=== PATIENT | male | born 1985 | race Caucasian/White ===

== ENCOUNTER 2022-03-04 14:28 | Emergency (ER) | payer BC ==
[2022-03-04 14:35] VITALS: RESP 16; TEMP 98.4
--- NOTE | 2022-03-04 15:11 | ED ---
Extremity Problem HPI - General Chief complaint: Extremity Problem,Nontraumatic Stated complaint: Left Foot Pain and Swelling Time Seen by Provider: 03/04/22 14:59 Source: patient, RN notes reviewed Mode of arrival: ambulatory Limitations: no limitations - History of Present Illness Initial comments: This is a 36-year-old male who presents to the emergency department for left foot pain, redness, swelling. Patient states that he noted pain to the left foot 2 days ago, and yesterday it became red and swollen. Denies any known injuries or scrapes/wounds to the foot. He has never had anything like this in the past. Denies any intravenous drug use. He is able to ambulate, however he has to limp due to the pain. The pain is not traveling up the leg. Denies any fevers, chills, sore throat, cough, dyspnea, chest pain, palpitations, abdominal pain, nausea, vomiting, diarrhea, back pain, or headaches. MD Complaint: extremity pain, extremity swelling Onset/Timin -: days(s) Location: right History of Same: No - Related Data Previous Rx's Medication Instructions Recorded Cephalexin [Keflex] 1,000 mg PO Q12HR 7 Days #28 cap 03/04/22 Indomethacin [Indocin] 50 mg PO TID 7 Days #21 capsule 03/04/22 Allergies Allergy/AdvReac Type Severity Reaction Status Date / Time No Known Allergies Allergy Verified 03/04/22 15:04 Review of Systems ROS Statement: Those systems with pertinent positive or pertinent negative responses have been documented in the HPI. ROS Other: All systems not noted in ROS Statement are negative. Past Medical History Past Medical History: No Reported History History of Any Multi-Drug Resistant Organisms: None Reported Additional Past Surgical History / Comment(s): knee surgery Past Psychological History: No Psychological Hx Reported Smoking Status: Current some day smoker, Vaper Past Alcohol Use History: Occasional Past Drug Use History: Marijuana General Exam Limitations: no limitations General appearance: alert, in no apparent distress Head exam: Present: atraumatic, normocephalic, normal inspection Respiratory exam: Present: normal lung sounds bilaterally. Absent: respiratory distress, wheezes, rales, rhonchi, stridor Cardiovascular Exam: Present: regular rate, normal rhythm, normal heart sounds. Absent: systolic murmur, diastolic murmur, rubs, gallop, clicks Extremities exam: Present: other (Erythema, tenderness, and increased heat to the dorsal aspect of the right foot. Pain with movement of all 5 toes. 2+ dorsalis pedis and tibialis posterior pulses bilaterally. Capillary refill <1 second bilaterally. ) Neurological exam: Present: alert, oriented X3, CN II-XII intact Psychiatric exam: Present: normal affect, normal mood Course Vital Signs 03/04/22 03/04/22 14:30 18:28 Temperature 98.4 F Pulse Rate 88 61 Respiratory 16 16 Rate Blood Pressure 160/99 165/109 O2 Sat by Pulse 96 96 Oximetry Medical Decision Making - Medical Decision Making This is a 36-year-old male who presents to the emergency department with erythema and tenderness to the left foot. There is no obvious puncture wound or abscess formation to suggest an infection. Lab work reveals no leukocytosis consistent with an infection and x-ray reveals no acute bony abnormalities. Uric acid was elevated as well as the CRP. Patient also notes a very poor diet with the consumption of a significant amount of sugary drinks and sweets as well as foods containing high fructose corn syrup, all of which can trigger gout. Symptoms are more likely to be related to gout than an infectious process given the laboratory findings and the patient's history. While this cannot be definitively diagnosed without joint fluid analysis, will proceed with treating the patient for gout. Patient was given a dose of indomethacin in the emergency department and a prescription for this was sent to the pharmacy. Advised to take this 3 times daily until symptoms resolve, up to 7 days. I sent a prescription for Keflex to the pharmacy as well, advised that if the symptoms do not improve or worsen with the indomethacin, he should begin taking the Keflex for possible infectious process. Wells criteria for a DVT is 0. Discussed the importance of becoming established with a primary care provider for further evaluation and management of symptoms as well as ongoing healthcare. Return precautions reviewed in depth, the patient is instructed to return to the emergency department with any new, worsening, or concerning symptoms. Patient verbalized understanding. This case was discussed in detail with the attending ED physician. Presentation, findings, and treatment plan discussed in detail as well. - Lab Data Result diagrams: 03/04/22 15:10 03/04/22 16:41 Lab Results 03/04/22 03/04/22 03/04/22 Range/Units 15:10 15:10 16:41 WBC 10.3 (3.8-10.6) k/uL RBC 4.85 (4.30-5.90) m/uL Hgb 15.0 (13.0-17.5) gm/dL Hct 43.4 (39.0-53.0) % MCV 89.3 (80.0-100.0) fL MCH 30.9 (25.0-35.0) pg MCHC 34.6 (31.0-37.0) g/dL RDW 12.8 (11.5-15.5) % Plt Count 259 (150-450) k/uL MPV 7.3 Neutrophils % 69 % Lymphocytes % 19 % Monocytes % 7 % Eosinophils % 3 % Basophils % 2 % Neutrophils # 7.1 (1.3-7.7) k/uL Lymphocytes # 2.0 (1.0-4.8) k/uL Monocytes # 0.7 (0-1.0) k/uL Eosinophils # 0.3 (0-0.7) k/uL Basophils # 0.2 (0-0.2) k/uL ESR 8 (0-15) mm/hr Sodium 138 (137-145) mmol/L Potassium 5.6 H 4.3 (3.5-5.1) mmol/L Chloride 104 (98-107) mmol/L Carbon Dioxide 25 (22-30) mmol/L Anion Gap 9 mmol/L BUN 12 (9-20) mg/dL Creatinine 0.93 (0.66-1.25) mg/dL Est GFR (CKD-EPI)AfAm >90 (>60 ml/min/1.73 sqM) Est GFR (CKD-EPI)NonAf >90 (>60 ml/min/1.73 sqM) Glucose 120 H (74-99) mg/dL Uric Acid 8.8 H (3.5-8.5) mg/dL Calcium 9.0 (8.4-10.2) mg/dL Total Bilirubin 1.0 (0.2-1.3) mg/dL AST 46 (17-59) U/L ALT 50 H (4-49) U/L Alkaline Phosphatase 59 (38-126) U/L C-Reactive Protein 2.2 H (<1.0) mg/dL Total Protein 7.7 (6.3-8.2) g/dL Albumin 4.5 (3.5-5.0) g/dL - Radiology Data Radiology results: report reviewed, image reviewed Disposition Clinical Impression: Gout Disposition: HOME SELF-CARE Instructions (If sedation given, give patient instructions): Low Purine Diet (ED), Gout (ED) Additional Instructions: Return to the emergency department with any new, worsening, or concerning symptoms. Take the Indomethacin three times daily until symptoms resolve, do not take longer than 7 days. If symptoms do not improve with the indomethacin, start taking the antibiotic in the event you have developed an infection. Make sure that you become established with a primary care provider to reevaluate symptoms. Review the dietary recommendations listed on your discharge forms. Prescriptions: Indomethacin [Indocin] 50 mg PO TID 7 Days #21 capsule Cephalexin [Keflex] 1,000 mg PO Q12HR 7 Days #28 cap Is patient prescribed a controlled substance at d/c from ED?: No Referrals: None,Stated [Primary Care Provider] - 1-2 days
[2022-03-04 15:17] LABS: Basophils # (A) 0.2 k/uL (0-0.2); Basophils % (A) 2 %; Eosinophils # (A) 0.3 k/uL (0-0.7); Eosinophils % (A) 3 %; HCT 43.4 % (39.0-53.0); Lymphocytes % (A) 19 %; MCH 30.9 pg (25.0-35.0); MCHC 34.6 g/dL (31.0-37.0); MCV 89.3 fL (80.0-100.0); Mean Platelet Volume 7.3; Monocytes # (A) 0.7 k/uL (0-1.0); Monocytes % (A) 7 %; Neutrophils # (A) 7.1 k/uL (1.3-7.7); Neutrophils % (A) 69 %; Platelet Count 259 k/uL (150-450); RBC 4.85 m/uL (4.30-5.90); RDW 12.8 % (11.5-15.5); WBC 10.3 k/uL (3.8-10.6)
[2022-03-04 15:29] LABS: ALT 50 U/L (4-49); AST 46 U/L (17-59); African American GFR (CKD) >90 (>60 ml/min/1.73 sqM); Albumin 4.5 g/dL (3.5-5.0); Alkaline Phosphatase 59 U/L (38-126); Anion Gap 9 mmol/L; Blood Urea Nitrogen 12 mg/dL (9-20); C Reactive Protein 2.2 mg/dL (<1.0); Carbon Dioxide 25 mmol/L (22-30); Chloride 104 mmol/L (98-107); Glucose 120 mg/dL (74-99); Non-African American GFR(CKD) >90 (>60 ml/min/1.73 sqM); Sodium 138 mmol/L (137-145); Total Protein 7.7 g/dL (6.3-8.2); Uric Acid 8.8 mg/dL (3.5-8.5)
[2022-03-04 15:31] LABS: Potassium 5.6 mmol/L (3.5-5.1)
--- NOTE | 2022-03-04 15:47 | XR ---
EXAMINATION TYPE: XR foot complete LT DATE OF EXAM: 03/04/2022 3:29 PM INDICATION: Patient age:Male; 36 years old; Reason for study: Foot pain, redness, and swelling. COMPARISON: None TECHNIQUE: The left foot was examined in the AP, oblique, and lateral projections. FINDINGS: No evidence of any acute osseous pathology. There is soft tissue swelling throughout the foot. Joints are preserved. No radiopaque foreign body. IMPRESSION: No evidence of acute fracture. No radiopaque foreign body Mild soft tissue swelling correlate for cellulitis.
[2022-03-04] MEDS ORDERED: INDOMETHACIN 25 MG CAP PO STA (15:54)
[2022-03-04] MEDS ORDERED: ONDANSETRON 4 MG ODT STARTER PACK 2 TAB BTL PO STA (16:39)
[2022-03-04] MEDS ORDERED: ACET/COD 300 MG/30 MG STARTER PACK 6 TAB BTL PO STA (16:39)
[2022-03-04 17:25] LABS: Erythrocyte Sedimentation Rate 8 mm/hr (0-15)
[2022-03-04] MEDS ORDERED: IBUPROFEN 600 MG STARTER PACK 4 TAB BTL PO STA (17:26)
[2022-03-04 18:30] VITALS: BP 165/109; PULSE 61
== END 2022-03-04 18:34 | disposition home or self-care (01) ==
LOC: EC 14:28
DX: M10.9 Gout, unspecified (principal); F17.209 Nicotine dependence, unspecified, with unspecified nicotine-induced disorders
CPT/HCPCS: 36415; 80053; 85652; 84132; 84550; 85025; 86140; 73630; 99283; S0119